=== PATIENT | male | born 1985 | race Hispanic/Latino ===

== ENCOUNTER 2019-10-25 20:58 | Emergency (ER) | payer SELFPAY ==
[~2019-10-25] VITALS: Ht 167.6 cm; Wt 83.9 kg
--- NOTE | 2019-10-25 21:18 | Emergency Department Note ---
History of Present Illnes History of Present Illness Chief Complaint: General Medicine Complaints History of Present Illness This is a 34 year old male with rash acute onset of 0900. patient with diffuse erythema and pruiritus of b/l UE and LE . Historian: Patient Arrival Mode: Car Onset (how long ago): hour(s) (12) Radiation: Reports extremity, Reports proximal, Reports distal Severity: moderate Onset quality: sudden Duration (how long): hour(s) (12) Timing of current episode: constant Progression: worsening Context: Denies recent illness, Denies recent surgery, Denies recent immobilization, Denies recent travel, Denies trauma/injury, Denies new medications, Denies hx of DVT/PE, Denies non-compliance w/ medications, Denies o ther Relieving factors: none Associated symptoms: Reports rash Treatments prior to arrival: none Past Medical/Family History Physician Review I have reviewed the patient's past medical and family history. Any updates have been documented here. Past Medical History Recent Fever: No Clinical Suspicion of Infectio: No New/Unexplained Change in Ment: No Past Medical History: None Past Surgical History: None Social History Smoking Cessation: Never Smoker Alcohol Use: None Any Illegal Drug Use: No Review of Systems Review of Systems Constitutional: Reports no symptoms EENTM: Reports no symptoms Cardiovascular: Reports no symptoms Respiratory: Reports no symptoms Gastrointestinal: Reports no symptoms Genitourinary: Reports no symptoms Musculoskeletal: Reports no symptoms Integumentary: Reports rash Neurological: Reports no symptoms Psychological: Reports no symptoms Endocrine: Reports no symptoms Hematological/Lymphatic: Reports no symptoms Physical Exam Related Data Allergies: Coded Allergies: No Known Allergies (Unverified , 10/25/19) Triage Vital Signs Vital Signs Date Time Temp Pulse Resp B/P (MAP) Pulse Ox O2 Delivery O2 Flow Rate FiO2 10/25/19 21:17 99.9 110 20 126/86 100 Room Air Physical Exam CONSTITUTIONAL Constitutional: Present well-developed, Present well-nourished HENT HENT: Present normocephalic, Present atraumatic, Present oropharynx clear/moist, Present nose normal HENT L/R: Present left ext ear normal, Present right ext ear normal EYES Eyes: Reports PERRL, Reports conjunctivae normal NECK Neck: Present ROM normal PULMONARY Pulmonary: Present effort normal, Present breath sounds normal CARDIOVASCULAR Cardiovascular: Present regular rhythm, Present heart sounds normal, Present capillary refill normal, Present normal rate GASTROINTESTINAL Abdominal: Present soft, Present nontender, Present bowel sounds normal GENITOURINARY Genitourinary: Present exam deferred SKIN Skin: Present rash, Present other (b/l UE and B/L LE) MUSCULOSKELETAL Musculoskeletal: Present ROM normal NEUROLOGICAL Neurological: Present alert, Present oriented x 3, Present no gross motor or sensory deficits PSYCHOLOGICAL Psychological: Present mood/affect normal, Present judgement normal Assessment & Plan Medical Decision Making MDM Diff dx : cellulitis, rhus dermatitis, atopic dermatitis, allergic reaction Assessment & Plan Final Impression: (1) Rash Depart Disposition: HOME, SELF-CARE Medications in the ED Prednisone 60 mg DAILY PO Last administered on 10/25/19 21:45; Admin Dose 60 MG; Start 10/26/19 at 09:00; Stop 11/02/19 at 08:59 Famotidine 20 mg ONCE ONCE PO Last administered on 10/25/19 21:45; Admin Dose 20 MG; Start 10/25/19 at 21:30; Stop 10/25/19 at 21:31 Hydroxyzine HCl 25 mg HS PO Last administered on 10/25/19 21:45; Admin Dose 25 MG; Start 10/26/19 at 21:30; Stop 11/25/19 at 21:29 Epinephrine HCl 0.3 mg ONCE STAT INJ Last administered on 10/25/19 21:45; Admin Dose 0.3 MG; Start 10/25/19 at 21:20; Stop 10/25/19 at 21:21 TJ JOE DO Oct 25, 2019 21:18
[2019-10-25] MEDS ORDERED: EPINEPHRINE HCL 1:1000 1ML 1 MG/ML AMP INJ STA (21:20)
[2019-10-25] MEDS ORDERED: FAMOTIDINE 20 MG TAB PO ONE (21:30)
[2019-10-25 22:52] VITALS: BP 109/70
--- OUTSIDE RECORDS SUMMARY | 2019-10-25 23:10 | XMS REPORT | Clinical Summary ---
Author Author [facility] Organization [facility] Address Unknown Phone Unavailable Care Team Providers Care Quarter Lining Smoother Name Role Phone PCP Unavailable Allergies Comments Active Allergy Reactions Severity Noted Date No Known Allergies 06/06/2013 Medications End Date Status Medication Sig Dispensed Refills Start Date Active lidocaine (LIDOCAINE Swish 5ml in 100 mL 0 VISCOUS) 2 % mucosal mouth and 4 solutionIndications: spit every Sensation of foreign body six hours as in throat needed for pain.. Active traMADol (ULTRAM) 50 mg Take 1 tablet 10 tablet 0 tabletIndications: Knee by mouth 5 pain every 6 hours as needed for Pain. Active hydrocortisone 2.5 % Apply to 20 g 0 07/22 topical creamIndications: affected area 5 Knee pain 2 times daily. Active tamsulosin (FLOMAX) 0.4 Take 1 30 capsule 0 mg extended release capsule by 6 capsuleIndications: Flank mouth daily. pain, Nephrolithiasis Active mometasone (NASONEX) 50 2 Sprays by 17 g 0 mcg/actuation nasal each nostril 6 sprayIndications: Cough, route daily. Fever, unspecified fever cause, Viral illness Active ibuprofen (MOTRIN) 800 mg Take 1 tablet 30 tablet 0 tabletIndications: Cough, by mouth 6 Fever, unspecified fever every 8 hours cause, Viral illness as needed for Pain or Fever > 100.5. Active Problems Problem Noted Date Flank pain 04/21/2015 Sensation of foreign body in throat 02/02/2014 Plantar fasciitis 07/28/2013 Low back pain 06/06/2013 Obesity, unspecified 06/06/2013 Knee pain 06/06/2013 Sleep Disordered Breathing 06/06/2013 Nephrolithiasis Cough Fever Viral illness Diarrhea Myalgia Vomiting without nausea Immunizations Name Administration Dates Next Due Tdap Tetanus, diphtheria, 06/06/2013 (Deferred: [facility]the [facility] - Patient requesting acellular pertussis to wait for next appointmen t) Vaccine Family History Medical History Relation Name Comments Family Medical History Unknown Relation Name Status Comments Brother Alive Brother Alive Daughter Alive Father Alive Maternal Grandfather Alive Maternal Grandmother Alive Mother Alive Paternal Grandfather Alive Paternal Grandmother Alive Son Alive Social History Date Tobacco Use Types Packs/Day Years Used Former Smoker Comments: 1-2 cigerettes every 2 days 5 years ago Drinks/Week oz/Week Comments Alcohol Use No Sex Assigned at Date Recorded Not on file Industry Job Start Date Occupation Not on file Not on file Not on file Travel End Travel History Travel Start No recent travel history available. Last Filed Vital Signs Not on file Plan of Treatment Health Maintenance Due Date Last Done Comments IMM Influenza Seasonal 12/01/2019 Oct to April (>/= 19 yrs) Results Not on fileafter 10/24/2018
[2019-10-26] MEDS ORDERED: PREDNISONE 20 MG TAB PO SCH (09:00)
[2019-10-26] MEDS ORDERED: HYDROXYZINE HCL 25 MG TAB PO NR (21:30)
== END 2019-10-25 22:55 | disposition home or self-care (01) ==
LOC: ER 21:15
DX: R21 Rash and other nonspecific skin eruption (principal)
CPT/HCPCS: 99283; J0171; J3410; J7512